=== PATIENT | male | born 1955 | race Caucasian/White ===

== ENCOUNTER → 2019-10-12 16:19 | Outpatient (BNVA) | payer OTHER, SELFPAY | PROVIDERS: Family Provider Internal Medicine; PCP Internal Medicine; Visit Provider Nurse Practitioner Family | DX: Z00.00 Encounter for general adult medical examination without abnormal findings (principal); I10 Essential (primary) hypertension; M1A.9XX0 Chronic gout, unspecified, without tophus (tophi); K21.9 Gastro-esophageal reflux disease without esophagitis | CPT/HCPCS: 80053; 80061; 84443; 85025 ==

== ENCOUNTER → 2021-05-07 16:21 | Outpatient (BNVA) | payer OTHER, SELFPAY | PROVIDERS: Family Provider Internal Medicine; PCP Internal Medicine; Visit Provider Nurse Practitioner Family | DX: Z00.00 Encounter for general adult medical examination without abnormal findings (principal); I10 Essential (primary) hypertension; E78.5 Hyperlipidemia, unspecified; Z12.5 Encounter for screening for malignant neoplasm of prostate | CPT/HCPCS: 80053; 80061; 83036; G0103 ==

== ENCOUNTER 2021-06-06 04:49 | Emergency (ER) | payer OTHER, SELFPAY ==
[2021-06-06 04:58] VITALS: BP 160/94; PULSE 105; RESP 20; TEMP 36.6; O2SAT 95; BMI 28.5
--- NOTE | 2021-06-06 05:08 | XRR_ITS ---
PROCEDURE INFORMATION: Exam: XR Chest Exam date and time: 06/06/2021 5:08 AM Age: 65 years old Clinical indication: Shortness of breath; Chest pressure; Patient HX: Chest pain with SOB; Additional info: Cough/dyspnea TECHNIQUE: Imaging protocol: XR of the chest. Views: 1 view. COMPARISON: No relevant prior studies available. FINDINGS: Lungs: Linear atelectasis in the right lung. Opacity at the left lung base consistent with pneumonia. Pleural spaces: Unremarkable. No pleural effusion. No pneumothorax. Heart/Mediastinum: Unremarkable. No cardiomegaly. Bones/joints: Unremarkable. XR/XR chest 1V portable [id number] IMPRESSION: Opacity at the left lung base consistent with pneumonia. Radiation Dose CTDIVOL = (mGy): DLP = (mGy-cm)
--- NOTE | 2021-06-06 05:09 | ECG_ITS ---
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 Measurements Intervals [place] Rate: 106 P: 41 AL: 164 QRS: 35 QRSD: 85 T: 47 QT: 320 QTc: 425 Interpretive Statements SINUS TACHYCARDIA ABNORMAL RHYTHM ECG Compared to ECG 04/08/2018 10:41:18 Sinus rhythm no longer present Electronically Signed On 06-06-2021 22:42:19 GLOBAL REGULATORY AFFAIRS MANAGER by Summer Garcia M.D. [email or web address] [email or web address] county joel pomerene memorial hospitalSalsa Bear Studios/store/NU/[id number] f
--- NOTE | 2021-06-06 05:40 | ED_ITS ---
Documented by User: Alem Oscar MD 06/06/21 05:45 HPI - General Adult General: Chief complaint: Chest Pain Stated complaint: Chest Pains, Chills, High bp and pulse Time Seen by Provider: 06/06/21 05:05 History of Present Illness: HPI narrative: Patient is a 65-year-old male history of hypertension, gout who presents the emergency room with multiple complaints including elevated blood pressure, elevated heart rate, chest pain shortness of breath. Patient tells me that yesterday night, he felt something did not feel right. Patient noted mild chest pressure and shortness of breath lasted for a minute yesterday night. Since yesterday, she has noticed that his blood pressure has been consistently high and his heart rate has been elevated. Patient also reports mild chills. Denies any fatigue, nausea/vomiting, short pain, back pain, jaw pain, diarrhea, melena hematochezia, fever/chills, cough/runny nose/sore throat. Onset:1 night ago Duration:8 hrs joy Location:home Severity:mild Review of Systems Narrative: Constitutional: No fever, no chills. HEENT: No vision changes CV: +chest pain, +palpitations PULM: no cough, no dyspnea. GI: No abdominal pain, no N/V/D. : No dysuria MSKEL: No muscle pain SKIN: No new rashes, no lesions. NEURO: No headache, no focal weakness. HEME: No visible bruises PSYCH: Normal mood PFSH ED PFSH: Medical History (Updated 06/06/21 @ 08:31 by Kolton Ko DO) Barretts esophagus Cardiac arrhythmia Chronic gout Essential (primary) hypertension GERD (gastroesophageal reflux disease) Wandy's deformity Plantar fasciitis Family History Other Cancer Myocardial infarct Social History Smoking and tobacco status: former smoker Alcohol intake: never Adopted: No Marital status: Number of children: 2 service: No History of recent travel: No Current gender identity: Male Physical Exam Narrative: EXAM NARRATIVE: Head: Atraumatic Eyes: PERRL, conjunctiva without injection ENT: Mucous membrane moist NECK: Supple, ROM intact LUNGS: LCTAB, no crackles/rhonchi CV: Sinus tachycardia ABDOMEN: Soft, nontender in all quadrants EXTREMITY: Normal ROM SKIN: No rash or erythema NEURO: Awake and alert, no focal motor deficits PSYCH: Normal mood and affect Course Vital Signs: Vital signs: Vital Signs Temperature 97.8 F 06/06/21 04:58 Pulse Rate 95 06/06/21 08:44 Respiratory Rate 17 06/06/21 08:44 Blood Pressure 128/80 06/06/21 08:44 Pulse Oximetry 93 06/06/21 08:44 MDM - General Adult MDM Narrative: Medical decision making narrative: Patient is a 65-year-old male with a history of hypertension, gout presented to emergency room with concerns of uncontrolled blood pressure, elevated heart rate, brief episode of shortness of breath and chest pain yesterday night. +mild tachycardiac on the monitor. No complaints of chest pain and dyspnea. EKG showing regular sinus rhythm at HT of [106]. Normal axis. No ST elevations/depressions to suggest coronary occlusion. Normal ME, QRS, QT intervals. Workup: CBC, BMP, troponin x 2, BNP, XR chest, covid ant/pcr, and influenza Intervention: IVF and serial observation XR is consistent with PNA. Pending blood work at this time. Case signed to Dr. Ko. Lab Data: Labs: Lab Results 06/06/21 06/06/21 06/06/21 05:47 05:47 05:47 WBC 15.1 10^3/uL H 10 ^3/uL (4.0-10.0) RBC 5.42 10^6/uL H 10 ^6/uL (4.1-5.3) Hgb 16.8 g/dL H g/dL (11.7-16.6) Hct 47.5 % % (42.0-52.0) MCV 87.6 fl fl (80-94) MCH 31.0 pg pg (28.0-34.0) MCHC 35.4 g/dL g/dL (30.0-36.0) RDW 12.2 % % (12.1-15.1) Plt Count 246 10^3/cmm 10^3 /cmm (130-400) MPV 10.5 fL H fL (7.4-10.4) Neut % (Auto) 83.6 % % Lymph % (Auto) 6.4 % % Faulkner % (Auto) 7.1 % % Eos % (Auto) 1.9 % % Baso % (Auto) 0.5 % % Neut # (Auto) 12.64 10^3/uL H 1 0^3/uL (1.8-7.7) Lymph # (Auto) 1.0 10^3/uL 10^3/ uL (0.8-4.8) Faulkner # (Auto) 1.1 10^3/uL H 10^ 3/uL (0.2-0.9) Eos # (Auto) 0.3 10^3/uL 10^3/ uL (0.0-0.8) Baso # (Auto) 0.1 10^3/uL 10^3/ uL (0.0-0.1) Nucleated RBC % (a uto) 0 % % Nucleated RBCs # 0.0 /100WBC /100W BC Sodium 141 mmol/L mmol/L (136-145) Potassium 4.0 mmol/L mmol/L (3.5-5.1) Chloride 101 mmol/L mmol/L (98-107) Carbon Dioxide 25 mmol/L mmol/L (22-29) Anion Gap 19.0 (5-19) BUN 15 mg/dL mg/dL (8-23) Creatinine 1.1 mg/dL mg/dL (0.7-1.2) GFR Calculation 67.0 mL/min L mL/ min (90-130) Glucose 106 mg/dL mg/dL (65-115) Calculated Osmolal ity 293 mOsm/kg mOsm/ kg (285-295) Calcium 9.6 mg/dL mg/dL (8.5-10.5) Troponin T Baselin e 8 ng/L ng/L (0-15) Troponin T [address] [place] Troponin T Nasal/Oral COVID-1 9 PCR Influenza Type A A g Influenza Type B A g SARS-CoV-2 Ag (Rap id) 06/06/21 06/06/21 06/06/21 05:47 05:49 05:49 WBC RBC Hgb Hct MCV MCH MCHC RDW Plt Count MPV Neut % (Auto) Lymph % (Auto) Faulkner % (Auto) Eos % (Auto) Baso % (Auto) Neut # (Auto) Lymph # (Auto) Faulkner # (Auto) Eos # (Auto) Baso # (Auto) Nucleated RBC % (a uto) Nucleated RBCs # Sodium Potassium Chloride Carbon Dioxide Anion Gap BUN Creatinine GFR Calculation Glucose Calculated Osmolal ity Calcium Troponin T Baselin e Troponin T [address] [place] Troponin T Nasal/Oral COVID-1 9 PCR Not detected Influenza Type A A g Negative (Negative) Influenza Type B A g Negative (Negative) SARS-CoV-2 Ag (Rap id) Negative (Negative) 06/06/21 07:37 WBC RBC Hgb Hct MCV MCH MCHC RDW Plt Count MPV Neut % (Auto) Lymph % (Auto) [place] % (Auto) Eos % (Auto) Baso % (Auto) Neut # (Auto) Lymph # (Auto) [place] # (Auto) Eos # (Auto) Baso # (Auto) Nucleated RBC % (a uto) Nucleated RBCs # Sodium Potassium Chloride Carbon Dioxide Anion Gap BUN Creatinine GFR Calculation Glucose Calculated Osmolal ity Calcium Troponin T Baselin e Troponin T [address] [place] 6.89 ng/L ng/L (0-15) Delta Troponin T -1.11 ABS# L ABS# (0-10) Nasal/Oral COVID-1 9 PCR Influenza Type A A g Influenza Type B A g SARS-CoV-2 Ag (Rap id) Imaging Data^: Other Imaging: Radiologist's impression: [address] [id number] ReportSigned Patient: Fabien Bonilla #: [id number]: 5Acct#:[id number]/Sex: 65 / MADM Date: 06/06/21Loc: ERRoom/Bed:Attending Dr: Ordering Provider/Ordering MD: Alem Oscar MD Date of Service: 06/06/21 Procedure(s): XR chest 1V portable [id number] Accession Number(s): [id number] Report Number: [id number] PROCEDURE INFORMATION: Exam: XR Chest Exam date and time: 06/06/2021 5:08 AM Age: 65 years old Clinical indication: Shortness of breath; Chest pressure; Patient HX: Chest pain with SOB; Additional info: Cough/dyspnea TECHNIQUE: Imaging protocol: XR of the chest. Views: 1 view. COMPARISON: No relevant prior studies available. FINDINGS: Lungs: Linear atelectasis in the right lung. Opacity at the left lung base consistent with pneumonia. Pleural spaces: Unremarkable. No pleural effusion. No pneumothorax. Heart/Mediastinum: Unremarkable. No cardiomegaly. Bones/joints: Unremarkable. XR/XR chest 1V portable [id number] IMPRESSION: Opacity at the left lung base consistent with pneumonia. Radiation Dose CTDIVOL = (mGy): DLP = (mGy-cm) Dictated By:Masha Durant By:Masha Durant Date/Time:06/06/21 0539DD/ 0508 Discharge Plan Discharge Patient Disposition: Home Clinical Impression: Pneumonia, Atypical chest pain Condition: Stable Prescriptions: New doxycycline hyclate 100 mg capsule 100 mg PO BID 14 Days Qty: 28 RF: 0 No Action allopurinol 100 mg tablet 100 mg PO DAILY Qty: 90 RF: 3 losartan [Cozaar] 100 mg tablet 100 mg PO DAILY Qty: 90 RF: 3 omeprazole 20 mg capsule,delayed release(DR/EC) 20 mg PO DAILY Qty: 90 RF: 4 Discharge Orders: Discharge ED (Routine); Ordered 06/06/21 Ordered By: Kolton Ko Referrals: Ken Simpson MD [Primary Care Provider] - Discharge Diet: Advance as tolerated Discharge Activity: Resume usual activity Patient Instructions: Chest Pain (ED), Hypertension (ED), Pneumonia (ED) Activity Restrictions/Additional Instructions: Come back to the emergency room if your chest pain worsens, have any fever or chills, worsening shortness of breath, worsening exertional lightheadedness, or any new or concerning complaints. Please take your antibiotics as instructed. Stand Alone Forms: Work/School Release Coding Level of Care Code ED Rn Admissions for Chg Fwd Documented by User: Kolton Ko DO 06/08/21 08:25 HPI - General Adult General: Chief complaint: Chest Pain Stated complaint: Chest Pains, Chills, High bp and pulse Time Seen by Provider: 06/06/21 05:05 PFSH ED PFSH: Medical History (Updated 06/06/21 @ 08:31 by Kolton Ko DO) Barretts esophagus Cardiac arrhythmia Chronic gout Essential (primary) hypertension GERD (gastroesophageal reflux disease) Wandy's deformity Plantar fasciitis Family History Other Cancer Myocardial infarct Social History Smoking and tobacco status: former smoker Alcohol intake: never Adopted: No Marital status: Number of children: 2 service: No History of recent travel: No Current gender identity: Male Course Vital Signs: Vital signs: Vital Signs Temperature 97.8 F 06/06/21 04:58 Pulse Rate 95 06/06/21 08:44 Respiratory Rate 17 06/06/21 08:44 Blood Pressure 128/80 06/06/21 08:44 Pulse Oximetry 93 06/06/21 08:44 MDM - General Adult MDM Narrative: Medical decision making narrative: Care assumed a change of shift. Chart reviewed. Patient has a pneumonia however he is well oxygenated. Labs imaging and EKG reviewed. Patient is improved oxygen sats stable on room air discussed with patient will discharge home on oral antibiotics return if has problems follow-up with his primary care provider within the next week. He should have a repeat chest x-ray within the next month, discussed with patient.. Lab Data: Labs: Lab Results 06/06/21 06/06/21 06/06/21 05:47 05:47 05:47 WBC 15.1 10^3/uL H 10 ^3/uL (4.0-10.0) RBC 5.42 10^6/uL H 10 ^6/uL (4.1-5.3) Hgb 16.8 g/dL H g/dL (11.7-16.6) Hct 47.5 % % (42.0-52.0) MCV 87.6 fl fl (80-94) MCH 31.0 pg pg (28.0-34.0) MCHC 35.4 g/dL g/dL (30.0-36.0) RDW 12.2 % % (12.1-15.1) Plt Count 246 10^3/cmm 10^3 /cmm (130-400) MPV 10.5 fL H fL (7.4-10.4) Neut % (Auto) 83.6 % % Lymph % (Auto) 6.4 % % Faulkner % (Auto) 7.1 % % Eos % (Auto) 1.9 % % Baso % (Auto) 0.5 % % Neut # (Auto) 12.64 10^3/uL H 1 0^3/uL (1.8-7.7) Lymph # (Auto) 1.0 10^3/uL 10^3/ uL (0.8-4.8) [place]ulkner # (Auto) 1.1 10^3/uL H 10^ 3/uL (0.2-0.9) Eos # (Auto) 0.3 10^3/uL 10^3/ uL (0.0-0.8) Baso # (Auto) 0.1 10^3/uL 10^3/ uL (0.0-0.1) Nucleated RBC % (a uto) 0 % % Nucleated RBCs # 0.0 /100WBC /100W BC Sodium 141 mmol/L mmol/L (136-145) Potassium 4.0 mmol/L mmol/L (3.5-5.1) Chloride 101 mmol/L mmol/L (98-107) Carbon Dioxide 25 mmol/L mmol/L (22-29) Anion Gap 19.0 (5-19) BUN 15 mg/dL mg/dL (8-23) Creatinine 1.1 mg/dL mg/dL (0.7-1.2) GFR Calculation 67.0 mL/min L mL/ min (90-130) Glucose 106 mg/dL mg/dL (65-115) Calculated Osmolal ity 293 mOsm/kg mOsm/ kg (285-295) Calcium 9.6 mg/dL mg/dL (8.5-10.5) Troponin T Baselin e 8 ng/L ng/L (0-15) Troponin T [address] [place] Troponin T Nasal/Oral COVID-1 9 PCR Influenza Type A A g Influenza Type B A g SARS-CoV-2 Ag (Rap id) 06/06/21 06/06/21 06/06/21 05:47 05:49 05:49 WBC RBC Hgb Hct MCV MCH MCHC RDW Plt Count MPV Neut % (Auto) Lymph % (Auto) [place]ulk[place] % (Auto) Eos % (Auto) Baso % (Auto) Neut # (Auto) Lymph # (Auto) [place] # (Auto) Eos # (Auto) Baso # (Auto) Nucleated RBC % (a uto) Nucleated RBCs # Sodium Potassium Chloride Carbon Dioxide Anion Gap BUN Creatinine GFR Calculation Glucose Calculated Osmolal ity Calcium Troponin T Baselin e Troponin T [address] [place] Troponin T Nasal/Oral COVID-1 9 PCR Not detected Influenza Type A A g Negative (Negative) Influenza Type B A g Negative (Negative) SARS-CoV-2 Ag (Rap id) Negative (Negative) 06/06/21 07:37 WBC RBC Hgb Hct MCV MCH MCHC RDW Plt Count MPV Neut % (Auto) Lymph % (Auto) [place]ulk[place] % (Auto) Eos % (Auto) Baso % (Auto) Neut # (Auto) Lymph # (Auto) [place] # (Auto) Eos # (Auto) Baso # (Auto) Nucleated RBC % (a uto) Nucleated RBCs # Sodium Potassium Chloride Carbon Dioxide Anion Gap BUN Creatinine GFR Calculation Glucose Calculated Osmolal ity Calcium Troponin T Baselin e Troponin T [address] [place] 6.89 ng/L ng/L (0-15) Delta Troponin T -1.11 ABS# L ABS# (0-10) Nasal/Oral COVID-1 9 PCR Influenza Type A A g Influenza Type B A g SARS-CoV-2 Ag (Rap id) Discharge Plan Discharge Patient Disposition: Home Clinical Impression: Pneumonia, Atypical chest pain Condition: Stable Prescriptions: New doxycycline hyclate 100 mg capsule 100 mg PO BID 14 Days Qty: 28 RF: 0 No Action allopurinol 100 mg tablet 100 mg PO DAILY Qty: 90 RF: 3 losartan [Cozaar] 100 mg tablet 100 mg PO DAILY Qty: 90 RF: 3 omeprazole 20 mg capsule,delayed release(DR/EC) 20 mg PO DAILY Qty: 90 RF: 4 Discharge Orders: Discharge ED (Routine); Ordered 06/06/21 Ordered By: Kolton Ko Referrals: Ken Simpson MD [Primary Care Provider] - Discharge Diet: Advance as tolerated Discharge Activity: Resume usual activity Patient Instructions: Chest Pain (ED), Hypertension (ED), Pneumonia (ED) Activity Restrictions/Additional Instructions: Come back to the emergency room if your chest pain worsens, have any fever or chills, worsening shortness of breath, worsening exertional lightheadedness, or any new or concerning complaints. Please take your antibiotics as instructed. Stand Alone Forms: Work/School Release Coding Level of Care Code ED Rn Admissions for Tri Peterson
[2021-06-06 05:52] VITALS: BP 119/73
[2021-06-06 06:07] LABS: Basophils # 0.1 10^3/uL (0.0-0.1); Basophils % 0.5 %; Eosinophils # 0.3 10^3/uL (0.0-0.8); Eosinophils % 1.9 %; Hematocrit 47.5 % (42.0-52.0); Hemoglobin 16.8 g/dL (11.7-16.6); Lymphocytes % 6.4 %; Mean Corpuscular HGB Conc 35.4 g/dL (30.0-36.0); Mean Corpuscular Volume 87.6 fl (80-94); Mean Platelet Volume 10.5 fL (7.4-10.4); Monocytes # 1.1 10^3/uL (0.2-0.9); Monocytes % 7.1 %; Neutrophils # 12.64 10^3/uL (1.8-7.7); Neutrophils % 83.6 %; Nucleated Red Blood Cells % 0 %; Platelet Count 246 10^3/cmm (130-400); Red Blood Count 5.42 10^6/uL (4.1-5.3); Red Cell Distribution Width 12.2 % (12.1-15.1); White Blood Count 15.1 10^3/uL (4.0-10.0)
[2021-06-06] MEDS: sodium chloride 0.9% 1,000 ML 999 ML IV (06:10)
[2021-06-06] MEDS: cefTRIAXone 1,000 MG in sodium chloride 0.9% (plus) 50 ML 100 MG IV (06:10)
[2021-06-06 06:30] LABS: Influenza A by IFA Negative (Negative); Influenza B by IFA Negative (Negative); SARS Covid-2 Antigen Negative (Negative)
[2021-06-06 06:32] LABS: Troponin(5th) Baseline 8 ng/L (0-15)
[2021-06-06 06:33] LABS: Blood Urea Nitrogen 15 mg/dL (8-23); Calcium 9.6 mg/dL (8.5-10.5); Carbon Dioxide 25 mmol/L (22-29); Chloride 101 mmol/L (98-107); Glucose 106 mg/dL (65-115); Osmolality Calculated 293 mOsm/kg (285-295); Sodium 141 mmol/L (136-145)
[2021-06-06] MEDS: azithromycin 500 MG in sodium chloride 0.9% 250 ML 250 MG IV (07:18)
[2021-06-06 08:17] LABS: Troponin 5 2HR 6.89 ng/L (0-15)
[2021-06-06 08:20] LABS: Troponin 5 2HR Delta -1.11 ABS# (0-10)
[2021-06-06 08:44] VITALS: BP 128/80; PULSE 95; RESP 17; O2SAT 93
[2021-06-06 17:00] LABS: Coronavirus Test Green County Not Detected
--- NOTE | 2021-06-07 09:20 | PC.NURSE ---
Patient notified of negative COVID 19 test results
== END 2021-06-06 08:45 | disposition home or self-care (01) ==
PROVIDERS: Emergency Medicine; Emergency Provider Family Medicine; PCP Internal Medicine
DX: R07.89 Other chest pain (principal); J18.9 Pneumonia, unspecified organism; I10 Essential (primary) hypertension; Z87.891 Personal history of nicotine dependence; Z20.822 Contact with and (suspected) exposure to COVID-19
CPT/HCPCS: 71045; 80048; 84484; 85025; 87426; 87635; 87804; 93005; 96365; 96367; 99284; J0456; J0696; J7030; J7050

== ENCOUNTER → 2024-10-19 08:38 | Outpatient (BNVA) | payer MEDICARE, SELFPAY | PROVIDERS: PCP Internal Medicine; Visit Provider Clinical Nurse Specialist Adult Health | DX: Z00.00 Encounter for general adult medical examination without abnormal findings (principal); I10 Essential (primary) hypertension; M1A.9XX0 Chronic gout, unspecified, without tophus (tophi) | CPT/HCPCS: 80053; 80061; 83036; 84153; 84550; 85025 ==

== ENCOUNTER → 2024-11-10 08:00 | Outpatient (BNVA) | payer MEDICARE, SELFPAY | PROVIDERS: PCP Clinical Nurse Specialist Adult Health; Visit Provider Nurse Practitioner Family | DX: L40.8 Other psoriasis (principal); L82.1 Other seborrheic keratosis; L81.4 Other melanin hyperpigmentation; D18.01 Hemangioma of skin and subcutaneous tissue; Z08 Encounter for follow-up examination after completed treatment for malignant neoplasm; Z85.828 Personal history of other malignant neoplasm of skin | CPT/HCPCS: 99214 ==

== ENCOUNTER → 2025-02-09 09:43 | Outpatient (BNVA) | payer MEDICARE, SELFPAY | PROVIDERS: PCP Clinical Nurse Specialist Adult Health; Visit Provider Clinical Nurse Specialist Adult Health | DX: N18.31 Chronic kidney disease, stage 3a (principal); I10 Essential (primary) hypertension; M1A.9XX1 Chronic gout, unspecified, with tophus (tophi) | CPT/HCPCS: 80053; 82306; 82607; 84550 ==

== ENCOUNTER → 2025-05-12 13:32 | Outpatient (BNVA) | payer MEDICARE, SELFPAY | PROVIDERS: PCP Clinical Nurse Specialist Adult Health; Visit Provider Nurse Practitioner Family | DX: L40.8 Other psoriasis (principal); L73.8 Other specified follicular disorders; L82.1 Other seborrheic keratosis; L81.4 Other melanin hyperpigmentation; D18.01 Hemangioma of skin and subcutaneous tissue; Z08 Encounter for follow-up examination after completed treatment for malignant neoplasm; Z85.828 Personal history of other malignant neoplasm of skin; L57.0 Actinic keratosis | CPT/HCPCS: 17000; 99214 ==

== ENCOUNTER 2025-05-13 12:08 | Inpatient (IN) | payer MEDICARE, SELFPAY ==
[2025-05-13] VITALS (25 sets, daily range): BP systolic 107–152; BP diastolic 61–102; PULSE 66–100; RESP 14–23; TEMP 36.9; O2SAT 94–98
--- NOTE | 2025-05-13 12:10 | XR_ITS ---
WS: [id number] Portable AP upright chest, 05/13/2025 Clinical Data: cp Comparison: Portable chest, 06/06/2021 Findings: No nodules, masses or effusions are seen. The heart is normal. The pulmonary vascularity is not increased. No pneumonia or pneumothorax is seen. The aortic arch and descending thoracic aorta show tortuosity. Monitor leads are on the chest wall. XR/XR chest 1V portable [id number] Impression: Atherosclerosis.
--- OUTSIDE RECORDS SUMMARY | 2025-05-13 12:13 | XMS_ITS | Patient Health Record ---
Author Organization [facility] Address [address] [place] [address] Care Team Providers Care Bead Forming Machine Operator Name Role Phone Lukasz Simpson [phone] Allergies Allergen (clinical drug ingredient) Drug/Non Drug Allergy documented on EMR Reaction Allergy Type Onset Date Status Penicillin Unknown Drug Allergy Active Reason For Referral No Information Medications Medication SIG (Take, Route, Frequency, Duration) Notes Start Date End Date Status Allopurinol 100 MG Tablet TAKE 1 TABLET BY MOUTH ONCE DAILY; Duration: 90 Active Omeprazole 20 MG Capsule Delayed Release TAKE 1 CAPSULE BY MOUTH EVERY DAY 30 MINUTES BEFORE BREAKFAST Orally Once a day; Duration: 90 days Active Losartan Potassium 100 MG Tablet TAKE 1 TABLET BY MOUTH ONCE DAILY; Duration: 90 Active Social History Tobacco Use: Social History Observation Description Date Details (start date - stop date) Never Smoker NA - NA Social History Drugs/Alcohol: Social Info Question Answer Notes Alcohol Screen (Audit-C) Did you have a drink containing alcohol in the past year? No Points 0 Interpretation Negative Tobacco Use: Social Info Question Answer Notes xTobacco Use/Smoking Are you a nonsmoker Problems Problem Type SNOMED Code ICD Code Onset Dates Problem Status W/U Status Risk Notes Problem Chronic gouty arthritis (33010021) Idiopathic chronic gout without tophus, unspecified site (M1A.00X0) Active confirmed Problem Disorder of skin AND/OR subcutaneous tissue (47510976) Non-healing skin lesion (L98.9) Active confirmed Problem Primary hypertension (90011428) Primary hypertension (I10) Active confirmed Plan Of Treatment No Information Insurance Providers Payer Name Payer Address Payer Phone Subscriber Number Group Number Insured Name Patient Relationship to Insured Coverage Start Date Coverage End Date [facility] [address] [address] [place] [address] [phone] [id number] Hernesto Gupta Self - patient is the insured Medical (General) History Medical History History ICD Code GERD (gastroesophageal reflux disease) K 21.9 Gout M10.9 Essential (primary) hypertension I10 Surgical History Surgery Date(Month/Year) none Hospitalization History Reason Date(Month/Year) none
--- NOTE | 2025-05-13 12:17 | ECG_ITS ---
[facility] Test Date: 2025-05-13 Pat Name: Hernesto Bonilla Department: Room: Gender: Male Technologist Development: : 1955 Requested By: Sandrita Ornelas Order Number: [id number] Gómez MD: Summer Garcia M.D. Measurements Intervals [place] Rate: 57 P: 25 [place]: 213 QRS: 25 QRSD: 85 T: 72 QT: 429 QTc: 421 Interpretive Statements SINUS BRADYCARDIA WITH FIRST DEGREE AV BLOCK WITH OCCASIONAL SUPRAVENTRICULAR PREMATURE COMPLEXES MODERATE ST DEPRESSION [0.05+ mV ST DEPRESSION] Compared to ECG 06/06/2021 04:55:29 First degree AV block now present ST (T wave) deviation now present Sinus tachycardia no longer present Electronically Signed On 05-13-2025 15:23:28 CDT by Summer Garcia M.D. [id number]
--- NOTE | 2025-05-13 12:22 | ED_ITS ---
HPI - Chest Pain General: Stated Complaint: CP SOB N Time Seen by Provider: 05/13/25 12:19 Source: patient Mode of arrival: ambulatory Limitations: no limitations History of Present Illness: 69-year-old male states he started havin g chest pain 1 hour ago. States it is a pressure type pain in the center of his chest. States the pain currently is a 5 out of 10 pressure type pain. Has mild nausea along with dyspnea. Denies any history of heart disease Related Data Home Medications ?Medication ?Instructions ?Recorded ?Confirmed aspirin 81 mg tablet,delayed 81 mg PO DAILY 10/19/24 0 02/09/25 release (Adult Aspirin Regimen) Previous Rx's ?Medication ?Instructions ?Recorded allopurinol 100 mg tablet 100 mg PO DAILY #90 tabs clonidine HCl 0.1 mg tablet 0.1 mg PO DAILY PRN hypert ensive 11/05/24 emergency #20 tabs omeprazole 20 mg capsule,delayed 20 mg PO DAILY #90 ca ps 11/05/24 release losartan 100 mg tablet (Cozaar) 100 mg PO DAILY #90 ta bs 11/19/24 cholecalciferol (vitamin D3) 125 125 mcg PO DAILY #30 caps 02/15/25 mcg (5,000 unit) capsule mecobalamin (vitamin B12) 1,000 1,000 mcg PO DAILY #90 tabs 02/15/25 mcg chewable tablet Allergies Allergy/AdvReac Type Severity Reaction Status Date / Time Penicillins Allergy ALGY-Rash Verified 02/09/25 08:45 Review of Systems Card: Reports: chest pain [facility] ED PFSH: Medical History Vitamin D deficiency Vitamin B12 deficiency Stage 3a chronic kidney disease (CKD) Squamous cell carcinoma Essential (primary) hypertension GERD (gastroesophageal reflux disease) Chronic gout without tophus, unspecified cause, unspecified site Tophi History of kidney stones Wandy's deformity Plantar fasciitis Barretts esophagus Cardiac arrhythmia Surgical History History of esophagogastroduodenoscopy (EGD) History of colonoscopy 2018, normal Family History Other Cancer Myocardial infarct Social History Smoking and tobacco/nicotine status: never used tobacco/nicotine Quit status (tobacco/nicotine): has quit using Former quit date comment: former tobacco chewer 10 years ago Alcohol intake: never Substance/Drug Use: never Adopted: No Marital status: Number of children: 2 service: No Current occupational status: retired Current gender identity: Male Physical Exam Const: COMMON NORMALS: patient oriented x3 HENMT: COMMON NORMALS: normocephalic and atraumatic HEAD & SCALP: normoceph alic and atraumatic Eye: COMMON NORMALS: Equal, round and reactive pupils present and EOMs intact bilaterally PUPIL: Yes Equal, round and reactive pupils present Neck/C-Spine: COMMON NORMALS: full ROM and supple Chest: COMMONS NORMALS: normal inspection of the chest and normal palpation of entire chest wall Resp: COMMON NORMALS: normal respiratory effort, No retractions, No use of accessory muscles and clear to auscultation bilaterally AUSCULTATION: clear to auscultation bilaterally Cardio: COMMON NORMALS: regular rate, regular rhythm and No murmurs present (Cardio) RATE: regular rate RHYTHM: regular rhythm GI: COMMON NORMALS: Normal to inspection, nondistended, normoactive bowel sounds present, Soft to palpation, non-tender and no masses PALPATION: Yes Soft to palpation Extremity: COMMON NORMALS: normal to inspection and full ROM Neuro: COMMON NORMALS: patient oriented x3, moves all extremities and no focal motor deficits Psych: COMMON NORMALS: mental status grossly normal, Normal thought process present and cooperative THOUGHT PROCESS: Normal thought process present Skin: COMMON NORMALS: no rashes or lesions noted and no wounds GENERAL SKIN EXAM: no rashes or lesions noted MDM - Chest Pain Medical Decision Making Patient presents here with chest pain EKG here shows elevation in 3 and aVF sinus bradycardia heart rate 57 QRS was 107 QTc was 406. STEMI and Food Handler was activated. Spoke to chemist instrumentation Dr. Jackson is going to take patient to the Food Handler. Patient given heparin Plavix and aspirin here. Medical Records I reviewed the patient's medical records. Lab Data I reviewed the patient's lab results. All radiology interpretation(s) finalized by discharge EKG Data EKG 1: I personally reviewed and interpreted this EKG as follows: EKG interpretation date: 05/13/25 EKG interpretation time: 12:17 Interpretation: sinus ashwini hr 57 st elevation III, avf Discharge Plan Discharge Patient Disposition: Admitted As Inpatient Clinical Impression: ST elevation (STEMI) myocardial infarction Condition: Stable Coding Level of Care Code ED International Relations Teacher for Chg Fwd Heart Score HEART Score Components History: Highly Suspicious EKG: Significant ST-deviation Age: 65 or more yrs Risk Factors: 1 or 2 Risk Factors Troponin: Baseline Trop 16-45 ng/L HEART Score RESULT HEART Score: 8
--- NOTE | 2025-05-13 12:22 | XACV_ITS ---
Ht: 180 cm Wt: 91 kg BSA: 2.15 m2 Gender: Male : 1955 Any Known Allergies: Penicillins Exam Priority: Routine Indication(s): - Inferior wall NJ Procedure(s): Procedure Description: Diagnostic procedure Procedure Description: PCI procedure Procedure Description: Left Heart Catheterization Procedure Description: Left ventriculography Procedure Description: Drug Eluting Coronary Stent Procedure Description: PTCA Procedure Description: Miscellaneous Procedure Description: ACT Procedure Description: Coronary Angiography Diagnostic Findings * Left Main has no disease. * Circumflex has no disease. * Mid Left Anterior Descending: significant 80% stenosis, ELLA: 3 flow. * Mid Left Anterior Descending: obstructive 70% stenosis, ELLA: 3 flow. * Distal Left Anterior Descending: severe 90% stenosis, ELLA: 3 flow. * Proximal Right Coronary Artery to Mid Right Coronary Artery: total occlusion, ELLA: 3 flow. * Distal Right Coronary Artery: minimal 30% stenosis, ELLA: 3 flow. * Coronary angiography shows right dominance. PCI Indication: STEMI - Immediate PCI for STEMI Interventional Findings * Proximal Right Coronary Artery to Mid Right Coronary Artery: 100% stenosis treated with a AB TREK 2.50X15 RX BALLOON, ANGÉLICA Merritt KATE 3.5X15 NURYS, and MDRadhika [place] EUPHORA RX [id number] BALLOON. 0% residual stenosis, ELLA: 3 flow. Conclusions 1. There is total occlusion coronary artery disease with two vessel disease. 2. The basal posterior, mid posterior, inferobasal, mid inferior torres are hypokinetic. 3. Normal left ventricular systolic function. Ejection fraction of 50%. 4. Proximal Right Coronary Artery to Mid Right Coronary Artery was treated with a Balloon, Drug Eluting Stent, and Balloon. Recommendations * 1-Return to inpatient for close monitoring and routine cath care 2-Risk factor modification for secondary prevention 3-Statin and aspirin 81 mg life-long, if tolerated 4-Patient was pre-loaded with 600 mg of Plavix, continue Plavix 75mg p.o. daily for at least one year. We will assess at the end of one year again to continue if further or not 5-Continue optimal medical management, staged PCI to mid and distal LAD in 3 to 4 weeks 6-Follow up with Dr. Phillips in four weeks and your primary care in 10 days. Diagnostic RX Recommendation: PCI w/o planned CABG Ventriculography Ejection Fraction: 50.0 % Pressures Phase:Rest AO : / ( 9 ) @ 1:43:00 PM 123 / 75 ( 79 ) @ 1:49:00 PM 132 / 78 ( 95 ) @ 1:50:00 PM 96 / 69 ( 83 ) @ 1:51:00 PM 102 / 68 ( 85 ) @ 1:54:00 PM 93 / 72 ( 83 ) @ 1:59:00 PM -7 / -9 ( -9 ) @ 2:02:00 PM 126 / 77 ( 101 ) @ 2:17:00 PM 127 / 77 ( 101 ) @ 2:17:00 PM 126 / 77 ( 101 ) @ 2:17:00 PM LV : 127 / -2 / 19 @ 2:15:00 PM 141 / -3 / 21 @ 2:16:00 PM 145 / -3 / 21 @ 2:17:00 PM Valves Phase:DefaultPhase AV : 19.0 @ 1:25:53 PM AV Mean Gradient: 11.0 @ 1:25:53 PM Clinical Evaluation EBL: 5mL-10mL Procedural Details Admit Source: Emergency department. Current Diagnosis : STEMI. Physician arrived. Pre-Procedure Time Out. Identified patient by full name and date of as verbalized by the patient/guarantor. Does the consent match the physician's order: Yes. Accurate & Complete Informed Consent: Yes. Inpatient/Outpatient History & Physical on Chart: N/A Emergent. If H&P is completed, is and addenduem needed: N/A Emergent; If yes, is the addendum complete: N/A Emergent. Visualize and Verify Site with Patient/Guarantor: N/A. Relevant Radiology Images available: N/A Emergent. Pre-op teaching completed and patient verbalized understanding. The risks, benefits, and alternatives of sedation and/or procedure were discussed by physician. The patient agrees to continue. Procedure started. [facility] Clinical Fraility Score: 6: Moderately Frail. Chucking Machine Set Up Operator Indications: ACS <= 24 hours. Chest Pain Symptom Assessment: Typical Angina Symptoms. Cardiovascular Instability: No. Correct patient, site and procedure confirmed by cath team. Current diagnosis: STEMI. PERRLA. Strong, equal hand geographic information systems manager bilaterally. Lungs clear x 5 lobes. IV Site on Arrival: 18 gauge in the right anticubital. IV Site on Arrival: 18 gauge in the left anticubital. IV Fluids: 0.9% NaCl at KVO. 0 mL infused prior to computer lab aide. Pre Procedural Pulses: bilateral posterior tibial was Doppled. Pre Procedural Pulses: bilateral dorsalis pedis was Doppled. Pre Procedural Pulses: bilateral radial was 3+. Oxygen started at 3liters/min via nasal canula. right groin was prepped with chloroprep then draped in the usual sterile fashion. right radial was prepped with chloroprep then draped in the usual sterile fashion. Baseline sample Acquired. HR: 57 BPM. Patient received 325 mg Aspirin PO, 600 mg plavix PO, Heparin 4000 units IV in ER. Baseline sample Acquired. HR: 79 BPM. Physician scrubbed in. Immediate Pre-Procedure Time Out. Correct Patient: Yes; Correct Procedure: Yes; Correct Site: Yes; Correct Patient Position: Yes; Correct Supplies: Yes; Dried Flammable Prep: Yes; Blood Products Available: N/A;. Lidocaine 1% infiltrated to the right radial. AP pads in place. Continued from ER. Arterial access obtained. 6 ukrainian JR 4 guide catheter was inserted over the wire. Wire removed. Contrast injection of the subclavian by MD. Glidewire inserted. Guide advanced into position. Guide seated in the RCA. Multiple views taken of right coronary artery. Runthrough guidewire was advanced through the guide catheter to lesion in the prox RCA. Inflation number : 1 A AB TREK 2.50X15 RX BALLOON was prepped and advanced across the Prox RCA , then inflated to 12 MARY for 0:12 seconds. Inflation number: 2 The AB TREK 2.50X15 RX BALLOON was reinflated across the Prox RCA, to 12 MARY for 0:10 seconds. Guidewire advanced across lesion. Balloon out. Results checked. Inflation Number : 3 A MDT R KATE 3.5X15 NURYS -Lot Number# [id number] EXP 05/02/27 was prepped and advanced across the Prox RCA. The stent was deployed at 12 MARY for 0:17 seconds. Results checked. Stent balloon out over wire. Inflation number : 4 A MDT NC EUPHORA RX [id number] BALLOON was prepped and advanced across the Prox RCA , then inflated to 14 MARY for 0:18 seconds. Inflation number: 5 The MDT NC EUPHORA RX [id number] BALLOON was reinflated across the Prox RCA, to 14 MARY for 0:13 seconds. Inflation number: 6 The MDT NC EUPHORA RX [id number] BALLOON was reinflated across the Prox RCA, to 12 MARY for 0:11 seconds. Balloon out. Results checked. ACT drawn. Results 341 seconds. Therapeutic limits - pre-heparin administration 90-150 seconds and monitoring heparin during a vascular procedure >250 seconds. Guide catheter out. A 5 ukrainian JL4 catheter in over wire. Multiple views taken of left coronary artery. Physician review of films. Catheter removed over the wire. Medication's Wasted: Lidocaine 1% = 18 ml , Nitro = 49.8 mg , Heparin = 1000 units , Fentanyl = 50 mcg. A 5 ukrainian Angled Pig catheter in over wire. EDP Sample taken: LV 127/-3,19; HR: 89 BPM; SpO2: 95%. LV gram performed in GOMEZ @ 10 mL/second for a total of 30 mL. Patient EF: Normal. EDP Sample taken: LV 141/-4,21; HR: 83 BPM; SpO2: 96%. Pullback taken: LV 145/-4,21; AO 126/77(101); Mean: 11mmHg, Peak to Peak: 19mmHg, SEP: 22sec/min; HR: 86 BPM; SpO2: 97%. Catheter removed over the exchange wire. Physician scrubbed out. Post-op diagnosis: Complet proximal RCA stenosis treated with one NURYS; Significan LAD disease to be treated with staged PCI. Complications: None. Estimated blood loss: 5mL-10mL. A TR Band was successful obtaining hemostatsis at the Right Radial artery insertion site. TR band placed. Hemostasis obtained. Post Procedure: Pulses reassessed and unchanged. PERRLA. Strong, equal hand geographic information systems manager bilaterally. No VTE prophylaxis required. Total IV fluids: 50 mL. Fluoro: 6:08. Contrast type used: Visipaque 320 mgI/mL, 100 mL bottle. [id number]. Responsiveness - Normal response to verbal stimuli; alert and oriented, PERRLA. Airway - Unaffected, no intervention required; spontaneous ventilation. Circulation: W/N/L, pulses unchanged. Nausea/Vomiting: No. Procedure completed. Patient transferred by wheelchair to ICU. Vital chart was stopped. Access Site Site: Right Radial artery Sheath Size: 6 Fr Hemostasis Method: TR Band Hemostasis Success: Successful Procedure Medications Start: 12:39 PM Stop: 12:39 PM Medication: Versed 1 mg and Fentanyl 25 mcg Amount: 1 Route: I.V. Start: 12:44 PM Stop: 12:44 PM Medication: Nitrogylcerin Amount: 200 mcg Route: I.A. Start: 12:49 PM Stop: 12:49 PM Medication: Fentanyl Amount: 25 mcg Route: I.V. Start: 12:50 PM Stop: 12:50 PM Medication: Heparin Amount: 5000 units Route: I.V. Start: 1:10 PM Stop: 1:10 PM Medication: Versed Amount: 1 mg Route: I.V. I, the attending physician, have reviewed and verified all procedure medications. Yes, all medications given per verbal order History/Risk Factors Hypertension: Yes Obesity: Yes Renal Disease: Yes Tobacco Use: Former Report Signatures Finalized by Danielle Phillips MD on 05/22/2025 10:50 PM
[2025-05-13] MEDS: heparin 5,000 unit/mL INJ 1 mL 4000 UNIT IVP (12:28)
[2025-05-13 12:30] LABS: Hematocrit 46.8 % (37-53); Hemoglobin 16.40 g/dL (11.27-16.99); Mean Corpuscular HGB Conc 35.0 g/dL (30-55); Mean Corpuscular Hemoglobin 30.7 pg (27-33); Mean Corpuscular Volume 87.6 fl (82-101); Nucleated Red Blood Cells % 0 %; Platelet Count 293 10^3/cmm (157-399); Red Blood Count 5.34 10^6/uL (3.85-5.65); White Blood Count 12.21 10^3/uL (3.29-11.43)
[2025-05-13 12:50] LABS: Troponin(5th) Baseline 25 ng/L (0-15)
[2025-05-13 12:57] LABS: Alanine Aminotransferase 17 U/L (0-41); Albumin Level 4.3 g/dL (3.5-5.2); Alkaline Phosphatase 57 U/L (40-130); Anion Gap 19.6 (5-19); Aspartate Amino Transferase 20 U/L (0-40); Blood Urea Nitrogen 16 mg/dL (8-23); Calcium 8.9 mg/dL (8.5-10.5); Carbon Dioxide 20 mmol/L (22-29); Chloride 105 mmol/L (98-107); Globulin 1.9 g/dL (1.3-4.6); Glucose 142 mg/dL (65-115); Lipase 24 U/L (13-60); NT Pro B Type Natriuretic Pept 255 pg/mL (0-125); Osmolality Calculated 296 mOsm/kg (285-295); Potassium 3.6 mmol/L (3.5-5.1); Sodium 141 mmol/L (136-145); Total Protein 6.2 g/dL (6.6-8.7)
--- NOTE | 2025-05-13 13:30 | P.HP_ITS ---
Providers/Chief Complaint 2 Primary Care Provider: Kalin Solano Chief Complaint: CP SOB N History of Present Illness Hernesto Bonilla is a 69 year old male past medical history significant hypertension hyperlipidemia non-smoker nondiabetic presented with chest pain after half hour duration he was noted to have ST elevation in the inferior leads he was taken to the Plastic Tubing Insulation Supervisor noted to have 100% occluded RCA treated with balloon angioplasty followed by a single drug-eluting stent postdilated with noncompliant balloon. Patient tolerated procedure well and became stable. He was also noted to have proximal and mid and distal LAD stenosis along with diagonal branch stenosis. It was thought to be managed with staged PCI as it was not culprit lesion and patient is not in shock and in order to avoid prolonged procedure with high level of radiation/contrast Review of Systems 2 Card: Reports: chest pain Medications/Allergies Home Medications ?Medication ?Instructions ?Recorded ?Confirmed ?Last Taken ?Type aspirin 81 mg tablet,delayed 81 mg PO DAILY 10/19/24 1 05/13/25 05:00 History release (Adult Aspirin Regimen) allopurinol 100 mg tablet 100 mg PO DAILY #90 tabs 05/13/25 05/13/25 05:30 Rx clonidine HCl 0.1 mg tablet 0.1 mg PO DAILY PRN hypert ensive 11/05/24 05/13/25 Unknown Rx emergency #20 tabs omeprazole 20 mg capsule,delayed 20 mg PO DAILY #90 ca ps 11/05/24 05/13/25 05/13/25 Rx release losartan 100 mg tablet (Cozaar) 100 mg PO DAILY #90 ta bs 11/19/24 05/13/25 05/13/25 Rx cholecalciferol (vitamin D3) 125 125 mcg PO DAILY #30 caps 02/15/25 05/13/25 05/13/25 Rx mcg (5,000 unit) capsule mecobalamin (vitamin B12) 1,000 1,000 mcg PO DAILY #90 tabs 02/15/25 05/13/25 Unknown Rx mcg chewable tablet Allergies Allergy/AdvReac Type Severity Reaction Status Date / Time Penicillins Allergy ALGY-Rash Verified 02/09/25 08:45 PFSH Acute 2 PFSH: Medical History (Updated 05/13/25 @ 12:26 by Sandrita Ornelas MD) Vitamin D deficiency Vitamin B12 deficiency Stage 3a chronic kidney disease (CKD) Squamous cell carcinoma Essential (primary) hypertension GERD (gastroesophageal reflux disease) Chronic gout without tophus, unspecified cause, unspecified site Tophi History of kidney stones Wandy's deformity Plantar fasciitis Barretts esophagus Cardiac arrhythmia Surgical History History of esophagogastroduodenoscopy (EGD) History of colonoscopy 2018, normal Family History Other Cancer Myocardial infarct Social History Smoking and tobacco/nicotine status: never used tobacco/nicotine Quit status (tobacco/nicotine): has quit using Former quit date comment: former tobacco chewer 10 years ago Alcohol intake: never Substance/Drug Use: never Adopted: No Marital status: Number of children: 2 service: No Current occupational status: retired Current gender identity: Male Vitals/I&O/Wt Weight last 48 hrs Weight 200 lb Physical Exam 2 Const: OTHER: GENERAL: Patient is alert, awake and oriented x3. HEART: Regular S1 and S2. No murmur, rub or gallop. LUNGS: Clear to auscultate bilaterally. CENTRAL NERVOUS SYSTEM: Grossly nonfocal. EXTREMITIES: Lower extremities with out edema bilaterally. Data 05/13/25 12:24 05/13/25 12:24 A&P Assessment and plan 1. ST elevation (STEMI) myocardial infarction: 2. Essential (primary) hypertension: Plan: Continue dual antiplatelet therapy in the form of 75 mg Plavix and 81 mg of aspirin Will add beta-salena over next 24 hours along with CONY inhibitor Will ask for echocardiogram in the morning Further plan will be devised as per progress of the patient PDMP PDMP Reviewed: Not Reviewed Attestations 2 Medical Necessity Statement*: Patient require continuation hospitalization for above defined care Coding Level of Care Code Acute Code for [facility] Fwd Diagnoses ST elevation (STEMI) myocardial infarction I21.3 Essential (primary) hypertension I10
[2025-05-13 15:03] LABS: Troponin 5 2HR 434.0 ng/L (0-15)
[2025-05-13 15:04] LABS: Troponin 5 2HR Delta 409.0 ABS# (0-10)
--- NOTE | 2025-05-13 15:42 | ECG_ITS ---
[facility] Test Date: 2025-05-13 Pat Name: Hernesto Bonilla Department: Room: [facility] Gender: Male Coil Inspector: : 1955 Requested By: Sandrita Ornelas Order Number: [id number] Reading MD: TARIK WALKER Measurements Intervals [place] Rate: 71 P: 3 MD: 188 QRS: -18 QRSD: 87 T: 24 QT: 400 QTc: 435 Interpretive Statements SINUS RHYTHM WITH FREQUENT SUPRAVENTRICULAR PREMATURE COMPLEXES INFERIOR MYOCARDIAL INFARCTION , OF INDETERMINATE AGE [40+ ms Q WAVE AND/OR ST/T ABNORMALITY IN II/aVF] Compared to ECG 05/13/2025 12:17:45 Myocardial infarct finding now present Sinus bradycardia no longer present First degree AV block no longer present ST (T wave) deviation no longer present Electronically Signed On 05-15-2025 22:30:38 CDT by TARIK WALKER [email or web address]
--- NOTE | 2025-05-13 18:13 | ECG_ITS ---
[facility] [facility] Test Date: 2025-05-13 Pat Name: Hernesto Bonilla Department: Room: [facility] Gender: Male Bill Cutter: : 1955 Requested By: Sandrita Ornelas Order Number: [id number] Reading MD: TARIK WALKER Measurements Intervals [place] Rate: 78 P: 0 WA: 0 QRS: -22 QRSD: 90 T: 34 QT: 377 QTc: 430 Interpretive Statements ATRIAL FIBRILLATION INFERIOR MYOCARDIAL INFARCTION , OF INDETERMINATE AGE [40+ ms Q WAVE AND/OR ST/T ABNORMALITY IN II/aVF] Compared to ECG 05/13/2025 15:42:39 Sinus rhythm no longer present Myocardial infarct finding still present Electronically Signed On 05-15-2025 22:30:02 CDT by TARIK WALKER [email or web address]
--- NOTE | 2025-05-13 19:14 | PC.NURSE ---
TR band to release 3ml air 1 hour post procedure without success. Air removal completed per policy by 615pm, attempted to remove TR band at 630pm with slight oozing at site. TR band replaced snuggly. Report given to Yenny MILES will continue to monitor site and redress when site stable.
[2025-05-13 19:19] LABS: Troponin 5 6HR Delta 778.8 ng/L (0-12)
[2025-05-13 19:20] LABS: Troponin 5 6HR 803.8 ng/L (0-15)
--- NOTE | 2025-05-13 21:03 | PC.NURSE ---
TR band removed @ 2044. Site not bleeding and tegaderm with gauze placed over site.
[2025-05-14] VITALS (15 sets, daily range): BP systolic 108–151; BP diastolic 56–95; PULSE 67–88; RESP 12–22; O2SAT 95–97
[2025-05-14 04:44] LABS: Hematocrit 44.9 % (37-53); Hemoglobin 15.60 g/dL (11.27-16.99); Mean Corpuscular HGB Conc 34.7 g/dL (30-55); Mean Corpuscular Hemoglobin 30.5 pg (27-33); Mean Corpuscular Volume 87.7 fl (82-101); Nucleated Red Blood Cells % 0 %; Platelet Count 214 10^3/cmm (157-399); Red Blood Count 5.12 10^6/uL (3.85-5.65); White Blood Count 10.47 10^3/uL (3.29-11.43)
[2025-05-14 05:07] LABS: Anion Gap 15.9 (5-19); Blood Urea Nitrogen 12 mg/dL (8-23); Calcium 8.5 mg/dL (8.5-10.5); Carbon Dioxide 21 mmol/L (22-29); Chloride 108 mmol/L (98-107); Glucose 101 mg/dL (65-115); Osmolality Calculated 292 mOsm/kg (285-295); Potassium 3.9 mmol/L (3.5-5.1); Sodium 141 mmol/L (136-145)
[2025-05-14] MEDS: metoprolol succinate ER (24 HR) 25 mg Tablet 12.5 MG PO (07:06)
--- NOTE | 2025-05-14 19:30 | USCV_ITS ---
Hernesto Bonilla Age: 69 Gender: M : 1955 Exam Date: 05/14/2025 06:36 Ordering Phys: Danielle Phillips MD ([email or web address]) Technologist: Prosper Simmons [place] [facility] [place]: stemi BP: 129 / 87 HR: 70 Rhythm: Sinus Technical Quality: Adequate MEASUREMENTS (Male / Female) Normal Values 2D ECHO LV Diastolic Diameter PLAX 4.3 cm 4.2 - 5.9 / 3.9 - 5.3 cm IVS Diastolic Thickness 0.8 cm 0.6 - 1.0 / 0.6 - 0.9 cm IVS Systolic Thickness 1.3 cm LVPW Diastolic Thickness 0.9 cm 0.6 - 1.0 / 0.6 - 0.9 cm LVPW Systolic Thickness 1.5 cm LVOT Diameter 2.0 cm LV Ejection Fraction 2D Teich 53.3 % LV Ejection Fraction MOD 4C 55.3 % LV Ejection Fraction MOD 2C 52.6 % LV Ejection Fraction 2C AL 51.8 % LA Diameter 3.6 cm RA Systolic Volume 4C AL 30.2 ml RA Systolic Volume 4C MOD 21.7 ml LA Sys Volume AL 38.5 cm cubed LA Sys Volume Index AL 17.5 cm cubed/m squared Aorta at Sinotubular Diameter 2.8 cm M-MODE LA Ao Ratio MM 1.5 AV Cusp Separation MM 1.5 cm DOPPLER AV Peak Velocity 141.0 cm/s LVOT Peak Velocity 87.0 cm/s AV Area Cont Eq vti 2.0 cm squared AV Area Cont Eq pk 2.0 cm squared MV Peak Velocity 112.0 cm/s MV Area PHT 5.1 cm squared Mitral E to A Ratio 0.8 TV Peak Velocity 322.0 cm/s TR Peak Velocity 324.0 cm/s TR Peak Gradient 42.0 mmHg TR Mean Velocity 240.0 cm/s TR Mean Gradient 25.3 mmHg TR Velocity Time Integral 87.9 cm PV Peak Velocity 90.7 cm/s RV Ejection Time 0.3 s FINDINGS Left Ventricle Normal left ventricular size, systolic function and wall thickness, with no regional wall motion abnormalities. Left ventricular ejection fraction is estimated at 60 %. Grade I/IV diastolic dysfunction (abnormal relaxation filling pattern), normal to mildly elevated filling pressures. Right Ventricle Normal right ventricular size and systolic function. Right Atrium Normal right atrial size. Left Atrium Mildly increased left atrial size. IA Septum Normal appearance of the interatrial septum. Mitral Valve Mildly thickened mitral valve. No mitral valve stenosis. Mild mitral valve regurgitation. Aortic Valve Mild aortic valve calcification. No aortic valve stenosis. Trace aortic valve regurgitation. Tricuspid Valve Normal tricuspid valve structure. No tricuspid valve stenosis or regurgitation. Normal pulmonary pressure. Pulmonic Valve Trace pulmonary valve regurgitation. Pericardium No pericardial effusion. Aorta Normal diameter of the aortic root and ascending thoracic aorta. IVC Normal IVC diameter. CONCLUSIONS Normal left ventricular size, systolic function and wall thickness, with no regional wall motion abnormalities. Left ventricular ejection fraction is estimated at 60 %. Grade I/IV diastolic dysfunction (abnormal relaxation filling pattern), normal to mildly elevated filling pressures. Mildly thickened mitral valve. No mitral valve stenosis. Mild mitral valve regurgitation. There is no pericardial effusion. Right atrial pressure is around 5 mm of mercury. Danielle Phillips MD (Electronically Signed) Final Date: 22 May 2025 18:58 S
[2025-05-15] VITALS: BP 129/76; PULSE 69; RESP 15
[2025-05-15 02:11] VITALS: BP 108/68; PULSE 74; RESP 10
[2025-05-15] MEDS: metoprolol succinate ER (24 HR) 25 mg Tablet 12.5 MG PO (04:14)
[2025-05-15 05:42] VITALS: PULSE 73
[2025-05-15 07:44] VITALS: TEMP 36.5
[2025-05-15 08:41] VITALS: PULSE 70; O2SAT 97
--- NOTE | 2025-05-15 13:42 | P.PN_ITS ---
Subjective 2 Subjective: Patient is doing fine from a cardiovascular perspective like to go home. He is feeling much better. Estimated ejection fraction by LV gram is 50 to 55%, echo is pending Vitals/I&O/Wt Last Vital Signs Temp 97.7 F 05/15/25 07:44 Pulse 70 05/15/25 08:41 Resp 10 L 05/15/25 02:11 BP 108/68 05/15/25 02:11 Pulse Ox 97 05/15/25 08:41 O2 Del Method Room Air 05/15/25 08:41 05/14/25 05/15/25 05/15/25 22:59 06:59 14:59 Intake Total 240 / 240 Output Total 400 / 400 1700 / 2100 200 / 200 Balance -400 / -400 -1460 / -1860 -200 / -200 Weight last 48 hrs Weight 202 lb 13.204 oz Weight 206 lb 5.643 oz Weight 209 lb 1.6 oz Physical Exam 2 Const: OTHER: GENERAL: Patient is alert, awake and oriented x3. HEART: Regular S1 and S2. No murmur, rub or gallop. LUNGS: Clear to auscultate bilaterally. CENTRAL NERVOUS SYSTEM: Grossly nonfocal. EXTREMITIES: Lower extremities with out edema bilaterally. Data 05/14/25 04:00 05/14/25 04:00 A&P Assessment and plan 1. ST elevation (STEMI) myocardial infarction: Patient underwent successful stenting of the RCA in the midsegment which was the culprit vessel resulting in the ST elevation MS. He was also noted to have proximal mid and distal LAD stenosis thought to be managed with staged PCI. Plan is to optimize medication bring him back in 2 to 3 weeks for staged PCI to LAD. 2. Essential (primary) hypertension: Plan: Continue current medical management including aspirin and statin beta- salena CONY inhibitor clopidogrel Follow-up in the clinic in 1 week to 10 days PDMP PDMP Reviewed: Not Reviewed Attestations 2 Medical Necessity Statement*: By rex carmen that is only vertigo patient can be discharged home. Coding Level of Care Code Acute Code for [facility] Diagnoses ST elevation (STEMI) myocardial infarction I21.3 Essential (primary) hypertension I10
--- NOTE | 2025-05-15 14:05 | P.DS_ITS ---
Discharge Providers Date of Admission: May 13, 2025 Date of Discharge: May 15, 2025 Attending Provider at Discharge: Danielle Phillips MD Primary Care Provider: Kalin Solano Diagnoses at Discharge Discharge Diagnosis 1. ST elevation (STEMI) myocardial infarction: 2. Essential (primary) hypertension: Reason for Visit Reason for Visit: STEMI Hospital Course Hospital Course 69-year-old male past medical history significant for remote history of tobacco use presented with ST elevation KS of inferior lead taken to the Macadam Raker noted to have 100% occluded RCA treated with single drug-eluting stent. LV gram showed mildly low to normal left ventricular ejection fraction 50 to 55%, patient was also noted to have proximal mid and distal LAD disease thought to be managed with staged PCI over next 2 to 3 weeks. In the hospital course remains unremarkable his medication were optimized. Patient is being discharged home in a stable condition. Advised to continue taking dual antiplatelet therapy in the form of aspirin and Plavix for at least 1 year further plan will be advised after that. Will see him in the clinic in 7 to 10 days at that time we will determine the date of LAD PCI. Physical Exam Const: OTHER: GENERAL: Patient is alert, awake and oriented x3. HEART: Regular S1 and S2. No murmur, rub or gallop. LUNGS: Clear to auscultate bilaterally. CENTRAL NERVOUS SYSTEM: Grossly nonfocal. EXTREMITIES: Lower extremities with out edema bilaterally. Discharge Data Studies Completed and Pending Completed Studies During Hospitalization Category Date Time Status XR chest 1V portable [id number] Routine Exams 05/13/25 12:10 Completed Pending at discharge Category Date Time Status CABINET AND TRIM INSTALLER request for service Stat Exams 05/13/25 12:22 Taken CV. echo complete* [id number] Routine Ultrasound 05/14/25 19:30 Taken Radiology Impressions Chest X-Ray 05/13/25 12:10 Impression: Atherosclerosis. Laboratory Results WBC 10.47 10^3/uL (3.29-11.43) 05/14/25 04:00 RBC 5.12 10^6/uL (3.85-5.65) 05/14/25 04:00 Hgb 15.60 g/dL (11.27-16.99) 05/14/25 04:00 Hct 44.9 % (37-53) 05/14/25 04:00 MCV 87.7 fl (82-101) 05/14/25 04:00 MCH 30.5 pg (27-33) 05/14/25 04:00 MCHC 34.7 g/dL (30-55) 05/14/25 04:00 RDW 12.6 % (12.1-15.1) 05/14/25 04:00 Plt Count 214 10^3/cmm (157-399) 05/14/25 04:00 MPV 10.7 fL (7.4-10.4) H 05/14/25 04:00 Neut % (Auto) 75.7 % 05/14/25 04:00 Lymph % (Auto) 14.1 % 05/14/25 04:00 Brantley % (Auto) 8.6 % 05/14/25 04:00 Eos % (Auto) 0.9 % 05/14/25 04:00 Baso % (Auto) 0.4 % 05/14/25 04:00 Neut # (Auto) 7.93 10^3/uL (1.8-7.7) H 05/14/25 04:00 Lymph # (Auto) 1.5 10^3/uL (0.8-4.8) 05/14/25 04:00 Brantley # (Auto) 0.9 10^3/uL (0.2-0.9) 05/14/25 04:00 Eos # (Auto) 0.1 10^3/uL (0.0-0.8) 05/14/25 04:00 Baso # (Auto) 0.0 10^3/uL (0.0-0.1) 05/14/25 04:00 Nucleated RBC % (auto) 0 % 05/14/25 04:00 Nucleated RBCs # 0.0 /100WBC 05/14/25 04:00 Sodium 141 mmol/L (136-145) 05/14/25 04:00 Potassium 3.9 mmol/L (3.5-5.1) 05/14/25 04:00 Chloride 108 mmol/L (98-107) H 05/14/25 04:00 Carbon Dioxide 21 mmol/L (22-29) L 05/14/25 04:00 Anion Gap 15.9 (5-19) 05/14/25 04:00 BUN 12 mg/dL (8-23) 05/14/25 04:00 Creatinine 1.1 mg/dL (0.7-1.2) 05/14/25 04:00 GFR Calculation 66.2 mL/min (90-130) L 05/14/25 04:00 Glucose 101 mg/dL (65-115) 05/14/25 04:00 Calculated Osmolality 292 mOsm/kg (285-295) 05/14/25 04:00 Calcium 8.5 mg/dL (8.5-10.5) 05/14/25 04:00 Total Bilirubin 0.5 mg/dL (0.15-1.2) 05/13/25 12:24 AST 20 U/L (0-40) 05/13/25 12:24 ALT 17 U/L (0-41) 05/13/25 12:24 Alkaline Phosphatase 57 U/L (40-130) 05/13/25 12:24 Troponin T Baseline 25 ng/L (0-15) H 05/13/25 12:24 Troponin T 120 Minute 434.0 ng/L (0-15) H 05/13/25 14:32 Delta Troponin T 409.0 ABS# (0-10) H* 05/13/25 14:32 Troponin T Hi Sens 6Hr 803.8 ng/L (0-15) H 05/13/25 18:42 Troponin T Hi Sens 6Hr Delta 778.8 ng/L (0-12) H* 05/13/25 18:42 NT-Pro-B Natriuret Pep 255 pg/mL (0-125) H 05/13/25 12:24 Total Protein 6.2 g/dL (6.6-8.7) L 05/13/25 12:24 Albumin 4.3 g/dL (3.5-5.2) 05/13/25 12:24 Globulin 1.9 g/dL (1.3-4.6) 05/13/25 12:24 Lipase 24 U/L (13-60) 05/13/25 12:24 Vitals Last Vital Signs Temp 97.7 F 05/15/25 07:44 Pulse 70 05/15/25 08:41 Resp 10 L 05/15/25 02:11 BP 108/68 05/15/25 02:11 Pulse Ox 97 05/15/25 08:41 O2 Del Method Room Air 05/15/25 08:41 Discharge Plan Discharge Patient Disposition: Home Condition: Stable Prescriptions: New atorvastatin 40 mg Tablet 80 mg PO BEDTIME Qty: 90 3RF clopidogrel 75 mg Tablet 75 mg PO DAILY Qty: 90 3RF nitroglycerin 0.4 mg Tablet, Sublingual 0.4 mg sublingual Q5M PRN (Reason: Chest Pain) Qty: 4 3RF metoprolol succinate 25 mg Tablet Extended Release 24 Hr 12.5 mg PO DAILY Qty: 90 3RF pantoprazole [Protonix] 40 mg tablet,delayed release (DR/EC) 40 mg PO DAILY Qty: 90 4RF Continued allopurinol 100 mg tablet 100 mg PO DAILY Qty: 90 3RF losartan [Cozaar] 100 mg tablet 100 mg PO DAILY Qty: 90 3RF mecobalamin (vitamin B12) 1,000 mcg tablet,chewable 1,000 mcg PO DAILY Qty: 90 1RF cholecalciferol (vitamin D3) 125 mcg (5,000 unit) capsule 125 mcg PO DAILY Qty: 30 6RF clonidine HCl 0.1 mg tablet 0.1 mg PO DAILY PRN (Reason: hypertensive emergency) Qty: 20 1RF Rx Instructions: to be used for SBP > 180 or DBP > 100 aspirin [Adult Aspirin Regimen] 81 mg tablet,delayed release (DR/EC) 81 mg PO DAILY Qty: 90 2RF Discontinued omeprazole 20 mg capsule,delayed release(DR/EC) 20 mg PO DAILY Qty: 90 3RF Documentation Consultant OK for DC: Cardiology Discharge Order = DC NOW: Discharge Order (Routine); Ordered 05/15/25 Ordered By: Danielle Phillips Referrals: Kalin Solano NP [Primary Care Provider, Family Practice] Patient Instructions: Metoprolol (By mouth), Nitroglycerin, Rapid Release (By mouth), Atorvastatin (By mouth), Clopidogrel (By mouth), Pantoprazole (By mouth), Heart Attack (DC), Coronary Angioplasty (DC) Activity Restrictions/Additional Instructions: No strenuous activity, can walk around and work as usual, patient will be seeing cardiology in 7 to 10 days, plan for staged PCI to LAD in 2 to 3 weeks Discharge Attestations Time Spent in Discharge Care*: greater than 30 min Quality Metrics Clinical Quality Measures [ Acute Myocardial Infaction { Clinical Trial Participant: No; Contraindication to aspirin: None; Aspirin prescribed; Contraindication to statin: None; Statin prescribed;}] Coding Level of Care Code Acute Code for [facility] Fwd Diagnoses ST elevation (STEMI) myocardial infarction I21.3 Essential (primary) hypertension I10
--- NOTE | 2025-05-15 15:15 | PC.NURSE ---
pt received discharge instructions with at bedside. no questions or concerns voiced. IV removed from the right ac. cath tip intact. Pt escorted out to personal vehicle via wheelchair.
--- NOTE | 2025-05-15 15:34 | PC.NURSE ---
prescriptions called to [facility] pharmacy in [facility] as [facility] the preferred pharmacy was closed and prescriptions were already transmitted. Medications included plavix, ntg, protonix, atorvastatin.
[2025-05-15 15:36] VITALS: BP 148/75; PULSE 78; RESP 16; O2SAT 97
--- OUTSIDE RECORDS SUMMARY | 2025-05-17 14:59 | XMS_ITS | Patient Health Record ---
Author Organization [facility] Address [address] [place] [address] Care Team Providers Care Tractor Drill Operator Name Role Phone Lukasz Simpson Allergies Allergen (clinical drug ingredient) Drug/Non Drug [...] Status Risk Notes Problem Chronic gouty arthritis (71979032) Idiopathic chronic gout without tophus, unspecified site (M1A.00X0) Active confirmed Problem Disorder of skin AND/OR subcutaneous tissue (64065508) Non-healing skin lesion (L98.9) Active confirmed Problem Primary hypertension (28248460) Primary hypertension (I10) Active confirmed Plan Of Treatment No Information Insurance Providers Payer Name Payer Address Payer Phone Subscriber Number Group Number Insured Name Patient Relationship to Insured Coverage Start Date Coverage End Date [facility] [address] [address] [place] [phone] [id number] Hernesto Gupta Self - patient is the insured Medical (General) History Medical History History ICD Code GERD (gastroesophageal reflux disease) K 21.9 Gout M10.9 Essential (primary) hypertension I10 Surgical History Surgery Date(Month/Year) none Hospitalization History Reason Date(Month/Year) none
== END 2025-05-15 15:15 | disposition home or self-care (01) | DRG 322 ==
LOC: ER 12:26 → CCL 12:31 → ICU 05-14 04:17
PROVIDERS: Admitting Provider Internal Medicine Cardiovascular Disease; Emergency Provider Emergency Medicine; PCP Clinical Nurse Specialist Adult Health; Visit Provider Internal Medicine Cardiovascular Disease
PROC: 027034Z Dilation of Coronary Artery, One Artery with Drug-eluting Intraluminal Device, Percutaneous Approach (ICD-10-PCS; principal; 2025-05-13 12:30)
DX: I21.11 ST elevation (STEMI) myocardial infarction involving right coronary artery (principal); I12.9 Hypertensive chronic kidney disease with stage 1 through stage 4 chronic kidney disease, or unspecified chronic kidney disease; N18.31 Chronic kidney disease, stage 3a; K21.9 Gastro-esophageal reflux disease without esophagitis; I25.10 Atherosclerotic heart disease of native coronary artery without angina pectoris; E78.5 Hyperlipidemia, unspecified; R42 Dizziness and giddiness; K22.70 Barrett's esophagus without dysplasia; M1A.9XX0 Chronic gout, unspecified, without tophus (tophi); Z79.82 Long term (current) use of aspirin; Z87.442 Personal history of urinary calculi; Z85.828 Personal history of other malignant neoplasm of skin; Z87.891 Personal history of nicotine dependence
CPT/HCPCS: 36415; 71045; 80048; 80053; 83690; 83880; 84484; 85025; 85347; 93005; 93306; 93458; 99152; 99153; C1725; C1769; C1874; C1887; C1894; C9606; J0461; J1644; J2250; J3010; J3490; J7030; J9999; Q9967

== ENCOUNTER → 2025-05-23 13:40 | Outpatient (BNVA) | payer MEDICARE, SELFPAY | PROVIDERS: PCP Clinical Nurse Specialist Adult Health; Visit Provider Internal Medicine Cardiovascular Disease | DX: R07.9 Chest pain, unspecified (principal) | CPT/HCPCS: 93005; 99214 ==

== ENCOUNTER 2025-05-26 05:32 | Outpatient (CLI) | payer MEDICARE, SELFPAY ==
[2025-05-26] VITALS (17 sets, daily range): BP systolic 105–148; BP diastolic 68–93; PULSE 68–88; RESP 14–22; TEMP 36.8; O2SAT 94–98; BMI 28.4
--- NOTE | 2025-05-26 06:00 | XACV_ITS ---
Ht: 180 cm Wt: 93 kg BSA: 2.17 m2 Gender: Male : 1955 Any Known Allergies: Penicillins Exam Priority: Routine Procedure(s): Procedure Description: Diagnostic procedure Procedure Description: PCI procedure Procedure Description: Drug Eluting Coronary Stent Procedure Description: PTCA Procedure Description: Miscellaneous Procedure Description: ACT Procedure Description: Coronary Angiography Alan BARAJAS; Diagnostic Cath Status: Elective Diagnostic Findings * Left Main has no disease. * Circumflex has no disease. * Mid Left Anterior Descending: significant 80% stenosis, ELLA: 3 flow. * Distal Left Anterior Descending to Distal Left Anterior Descending: significant 80% stenosis, ELLA: 3 flow. * RCA: Patent previously placed mid RCA stent, distal 40 to 50% stenosis. * Coronary angiography shows right dominance. * Indication for PCI. 69-year-old male with history of recent ST elevation [place] was treated with drug-eluting stent to mid RCA. At the same time it was learned that patient has mid and distal LAD high-grade stenosis thought to be managed with staged PCI. Today patient came back for staged PCI. Initial coronary angiogram is as follows. * Staged PCI to mid and distal LAD. PCI Status: Elective Interventional Findings * Mid Left Anterior Descendin% stenosis treated with a AB TREK 2.50X12 RX BALLOON, MDRadhika R KATE 3.0X15 NURYS, and ANGÉLICA [place] EUPHORA RX 3.58V55XX BALLOON. 0% residual stenosis, ELLA: 3 flow. * Distal Left Anterior Descending to Distal Left Anterior Descendin% stenosis treated with a AB TREK 2.50X12 RX BALLOON. 20% residual stenosis, ELLA: 3 flow. * PCI to mid LAD: Mid LAD was treated with 2.5 x 12 mm Trek balloon angioplasty followed by 3.0 x 15 mm Fenwick drug-eluting stent which was then postdilated with noncompliant balloon ANGÉLICA [place] Euphora 3.5 x 6 mm at 14 mary. Excellent angiographic result was achieved. No complication noted. Percutaneous balloon angioplasty of the distal LAD: Distal LAD lesion was treated with 2.5 x 12 mm trek balloon angioplasty at high inflation of 14 mm. Excellent angiographic result was achieved 80% lesion was reduced to 20%. No complication noted. Conclusions 1. There is significant coronary artery disease with two vessel disease. 2. Mid Left Anterior Descending was treated with a Balloon, Drug Eluting Stent, and Balloon. 3. Distal Left Anterior Descending to Distal Left Anterior Descending was treated with a Balloon. Recommendations * 1-Return to inpatient for close monitoring and routine cath care 2-Risk factor modification for secondary prevention 3-Statin and aspirin 81 mg life-long, if tolerated 4-Patient was pre-loaded with 300 mg of Plavix, continue Plavix 75mg p.o. daily for at least one year. We will assess at the end of one year again to continue if further or not 5-Continue optimal medical management 6-Follow up with Dr. Phillips in four weeks and your primary care in 10 days. Diagnostic RX Recommendation: PCI w/o planned CABG Pressures Phase:Rest AO : 99 / 92 ( 75 ) @ 8:12:00 AM / ( 0 ) @ 8:20:00 AM 124 / 77 ( 84 ) @ 8:20:00 AM 105 / 75 ( 89 ) @ 8:20:00 AM 103 / 71 ( 85 ) @ 8:21:00 AM Clinical Evaluation EBL: 5mL-10mL Procedural Details Procedure Consent Obtained. Admit Source: Out Patient. Pre-Procedure Time Out. Identified patient by full name and date of as verbalized by the patient/guarantor. Does the consent match the physician's order: Yes. Accurate & Complete Informed Consent: Yes. Inpatient/Outpatient History & Physical on Chart: Yes. If H&P is completed, is and addenduem needed: No; If yes, is the addendum complete: N/A. Visualize and Verify Site with Patient/Guarantor: N/A. Relevant Radiology Images available: N/A. The risks, benefits, and alternatives of sedation and/or procedure were discussed by physician. The patient agrees to continue. Procedure started. [facility] Clinical Fraility Score: 3: Managing Well. 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 Chest Pain Symptom Assessment: Typical Angina Symptoms. Correct patient, site and procedure confirmed by cath team. Current diagnosis: Staged PCI. PERRLA. Strong, equal hand electric motor fitter bilaterally. Lungs clear x 5 lobes. IV Site on Arrival: 20 gauge in the right anticubital. IV Fluids: 0.9% NaCl at KVO. 0 mL infused prior to mini lab operator. Pre Procedural Pulses: bilateral posterior tibial was 3+. Pre Procedural Pulses: bilateral dorsalis pedis was 3+. Pre Procedural Pulses: bilateral radial was 3+. Oxygen started at 3liters/min via nasal canula. right groin was prepped with chloroprep then draped in the usual sterile fashion. right radial was prepped with chloroprep then draped in the usual sterile fashion. Physician notified. Baseline sample Acquired. HR: 83 BPM. Family updated by MD prior to arrival. Physician arrived. Physician scrubbed in. Immediate Pre-Procedure Time Out. Correct Patient: Yes; Correct Procedure: Yes; Correct Site: Yes; Correct Patient Position: Yes; Correct Supplies: Yes; Dried Flammable Prep: Yes; Blood Products Available: N/A;. Lidocaine 1% infiltrated to the right radial. Arterial access obtained. A 5 paraguayan JR4 catheter in over wire. Multiple views taken of right coronary artery. Catheter removed over the exchange wire. 6 paraguayan XB 3.5 guide catheter was inserted over the wire. Guide seated in the LCS. Multiple views taken of left coronary artery. Runthrough guidewire was advanced through the guide catheter to lesion in the mid LAD. Guidewire advanced across lesion. Inflation number : 1 A AB TREK 2.50X12 RX BALLOON was prepped and advanced across the Dist LAD , then inflated to 12 MARY for 0:18 seconds. Inflation number: 2 The AB TREK 2.50X12 RX BALLOON was reinflated across the Dist LAD, to 12 MARY for 0:11 seconds. Inflation number: 1 The AB TREK 2.50X12 RX BALLOON was reinflated across the Mid LAD, to 12 MARY for 0:12 seconds. Balloon out. Results checked. Family updated by staff. ACT drawn. Results 295 seconds. Therapeutic limits - pre-heparin administration 90-150 seconds and monitoring heparin during a vascular procedure >250 seconds. Inflation Number : 2 A MDT R KATE 3.0X15 NURYS -Lot Number# [id number] EXP10/30/2027 was prepped and advanced across the Mid LAD. The stent was deployed at 12 MARY for 0:19 seconds. Stent balloon and wire out. Results checked. Inflation number : 3 A MDT NC EUPHORA RX 3.95M33ZE BALLOON was prepped and advanced across the Mid LAD , then inflated to 14 MARY for 0:16 seconds. Inflation number: 4 The MDT NC EUPHORA RX 3.67R27CA BALLOON was reinflated across the Mid LAD, to 14 MARY for 0:14 seconds. Inflation number: 5 The MDT NC EUPHORA RX 3.92U85IF BALLOON was reinflated across the Mid LAD, to 14 MARY for 0:18 seconds. Balloon out. Results checked. Wire out. Results checked. Guide catheter out over the wire. Physician review of films. Physician scrubbed out. Post op Diagnosis: statge PCI; Status post PCI to mid lad with NURYS and balloon angioplasty to the distal LAD. A TR Band was successful obtaining hemostatsis at the Right Radial artery insertion site. TR band placed. Hemostasis obtained. Post Procedure: Pulses reassessed and unchanged. PERRLA. Strong, equal hand electric motor fitter bilaterally. No VTE prophylaxis required. Medication's Wasted: Lidocaine 1% = 18 ml , Nitro =49.6 mg , Heparin = 3000 units , Fentanyl = 50 mcg. Total IV fluids: 60 mL. Fluoro: 6:09. Contrast type used: Omnipaque 300 mg/mL, 150 mL bottle. [id number]. Estimated blood loss: 5mL-10mL. Responsiveness - Normal response to verbal stimuli; alert and oriented, PERRLA. Airway - Unaffected, no intervention required; spontaneous ventilation. Circulation: W/N/L, pulses unchanged. Nausea/Vomiting: No. Procedure completed. Vital chart was stopped. Patient transferred by wheelchair to CPRU. Current Diagnosis : Chest Pain. Access Site Site: Right Radial artery Sheath Size: 6 Fr Hemostasis Method: TR Band Hemostasis Success: Successful Procedure Medications Start: 7:56 AM Stop: 7:56 AM Medication: Versed Amount: 1 mg Route: I.V. Start: 7:56 AM Stop: 7:56 AM Medication: Fentanyl Amount: 50 mcg Route: I.V. Start: 8:07 AM Stop: 8:07 AM Medication: Versed Amount: 1 mg Route: I.V. Start: 8:09 AM Stop: 8:09 AM Medication: Nitrogylcerin Amount: 200 mcg Route: I.A. Start: 8:15 AM Stop: 8:15 AM Medication: Heparin Amount: 7000 units Route: I.V. Start: 8:37 AM Stop: 8:37 AM Medication: Heparin Amount: 1000 units Route: I.V. Start: 8:39 AM Stop: 8:39 AM Medication: Nitrogylcerin Amount: 200 mcg Route: I.A. Start: 8:43 AM Stop: 8:43 AM Medication: Plavix Amount: 300 mg Route: P.O. I, the attending physician, have reviewed and verified all procedure medications. Yes, all medications given per verbal order History/Risk Factors Hypertension: Yes Dyslipidemia: Yes Peripheral Arterial Disease (PAD): No Myocardial Infarction (TX): Yes Obesity: No Renal Disease: No Tobacco Use: Former Prior Interventions PCI: Yes CABG: No Valve Surgery: No Date of PCI: 05/13/2025 Report Signatures Finalized by Danielle Phillips MD on 05/26/2025 09:05 AM
--- NOTE | 2025-05-26 07:56 | W.PM.OPSUD ---
Surgery/Procedure H&P Update DATE OF PROCEDURE: May 26, 2025 DATE H&P PERFORMED: 05/23/25 PREOP DIAGNOSIS: Stage PCI to LAD PRIMARY INDICATION FOR PROCEDURE: 69-year-old male recently underwent PCI to RCA for ST elevation PA during the same procedure was noted patient has proximal mid and distal LAD lesion thought to be managed with staged PCI. It is the reason patient is here today. PLANNED PROCEDURE: Operation Date: 05/26/25 07:00 Proposed Procedures p Percutaneous Coronary Intervention - Staged PCI(Not Applicable) - Danielle Phillips MD PATIENT REASSESSED PRIOR TO SEDATION, WITH NO CHANGE NOTED: Yes PHYSICAL EXAM: alert, oriented x 3, clear to auscultation bilaterally, regular rate & rhythm and operative site marked AIRWAY EVAL/ANESTHESIA PLAN: ASA II, Risks, benefits & alternatives of sedation and/or procedure discussed and Patient agrees to continue as planned ADDITIONAL INFORMATION: All risk-benefit and alternative for the procedure has been explained to the patient. Patient understand 2% risk of stroke major bleed. Patient understand 5% risk of minor bleeding oozing infection hematoma urgent or emergent vascular surgery contrast induced nephropathy. He agrees to it and would like to proceed with it
--- NOTE | 2025-05-26 09:25 | PC.NURSE ---
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 Patient ambulated to the cot without difficulty. A & 0 x 3. youth nutritional monitor placed and vital signs obtained. TR band intact to the right wrist. No bleeding or hematoma noted. Palpable radial pulse. No other assessment changes noted from pre cath assessment. Family at bedside. No concerns voiced at this time.
--- NOTE | 2025-05-26 10:05 | PC.NURSE ---
Letting the air out of the TR band per protocol. No other changes noted at this time. Spouse at bedside.
--- NOTE | 2025-05-26 11:00 | PC.NURSE ---
TR band off per protocol. Right wrist area cleansed with warm water and patted dry. A large band aid was applied to the site and loosely secured with coban. No bleeding or hematoma noted. Palpable radial pulse. Patient tolerated well.
--- NOTE | 2025-05-26 14:20 | PC.NURSE ---
Patient dc'd home via wheelchair with spouse and all belongings.
== END 2025-05-26 05:33 | disposition home or self-care (01) ==
PROVIDERS: PCP Clinical Nurse Specialist Adult Health; Visit Provider Internal Medicine Cardiovascular Disease
DX: I25.10 Atherosclerotic heart disease of native coronary artery without angina pectoris (principal); I12.9 Hypertensive chronic kidney disease with stage 1 through stage 4 chronic kidney disease, or unspecified chronic kidney disease; N18.31 Chronic kidney disease, stage 3a; E78.5 Hyperlipidemia, unspecified; I25.2 Old myocardial infarction; Z87.891 Personal history of nicotine dependence; Z79.82 Long term (current) use of aspirin; K21.9 Gastro-esophageal reflux disease without esophagitis; Z85.828 Personal history of other malignant neoplasm of skin; I49.9 Cardiac arrhythmia, unspecified; Z95.5 Presence of coronary angioplasty implant and graft
CPT/HCPCS: 36415; 85347; 93454; 99152; 99153; C1725; C1769; C1874; C1887; C1894; C9600; J0461; J1644; J2250; J3010; J3490; J7030; J9999; Q0163; Q9967